=== PATIENT | male | born 1975 | race American Indian/Alaskan Native ===

== ENCOUNTER 2016-12-21 09:03 | Day surgery (SDC) | payer OTHER, MEDICAID ==
[~2016-12-21 09:03] MED LIST: ANCEF/STERILE WATER 2 GM/20 ML 2 GM/20 ML SYRINGE IV NR; HEPARIN 10,000 UNITS/10 ML ONE; MARCAINE 0.5% INFILTRATI ONE; NACL 0.9% 1000 ML 1,000 ML IV SCH; NACL 0.9% 500 ML 500 ML ONE; NACL P/F VIAL (10 ML) 0 ML ONE; RIFADIN ONE
[2016-12-21] MEDS ORDERED: SUBLIMAZE ONE (09:41)
[2016-12-21] MEDS ORDERED: DIPRIVAN 10 MG/ML IV ONE (09:41)
[2016-12-21] MEDS ORDERED: XYLOCAINE MPF 2% ONE (09:41)
[2016-12-21] MEDS ORDERED: NACL BACTERIOSTATIC INFILTRATI ONE (10:14)
--- NOTE | 2016-12-21 10:31 | Anesthesia Consultation ---
Anesthesia Consult and Med Hx Date of service: 12/21/16 - Airway Anesthetic Teeth Evaluation: Good ROM Head & Neck: Adequate Mental/Hyoid Distance: Adequate Mallampati Class: Class II Intubation Access Assessment: Good - Pulmonary Exam CTA: Yes - Cardiac Exam Cardiac Exam: RRR - Pre-Operative Health Status ASA Pre-Surgery Classification: ASA3 Proposed Anesthetic Plan: General - Cardiovascular System Hx Hypertension: Yes (x 4-5 yrs) - Central Nervous System Hx Psychiatric Problems: No - Endocrine Hx End Stage Renal Disease: Yes - Hematic Hx Anemia: Yes - Other Systems Hx Cancer: No
--- NOTE | 2016-12-21 10:31 | Anesthesia Day of Surgery ---
Anesthesia Day of Surgery - Day of Surgery Patient Examined: Yes Patient H&P Reviewed: Yes Patient is NPO: Yes
[2016-12-21 10:59] LABS: Basophils % (Auto) 0.5 % (0.0-1.8); Eosinophils % (Auto) 1.7 % (0.0-4.3); Hematocrit 39.4 % (35.5-45.6); Hemoglobin 12.1 gm/dl (11.8-15.2); Mean Corpuscular HGB Conc 31 % (32-34); Mean Corpuscular Hemoglobin 22 pg (28-32); Mean Corpuscular Volume 71 fl (84-94); Mean Platelet Volume 8.9 fl (6-12); Platelet Count 194 K/mm3 (140-440); Red Blood Count 5.59 M/mm3 (3.65-5.03); Red Cell Distribution Width 22.1 % (13.2-15.2); White Blood Count 6.6 K/mm3 (4.5-11.0)
[2016-12-21 11:00] LABS: BUN/Creatinine Ratio 2.8; Calcium 10.5 mg/dL (8.4-10.2); Chloride 96.3 mmol/L (98-107); Potassium 3.5 mmol/L (3.6-5.0)
[2016-12-21] MEDS ORDERED: MARCAINE 0.5% IJ ONE (11:45)
[2016-12-21] MEDS ORDERED: HEPARIN 10,000 UNITS/10 ML 2,000 UNIT in NACL 0.9% 500 ML 500 ML IR ONE (11:46)
[2016-12-21] MEDS ORDERED: NACL 0.9% IR ONE (11:46)
[2016-12-21] MEDS ORDERED: ZOFRAN ONE (12:16)
--- NOTE | 2016-12-21 12:26 | Short Stay Summary ---
Short Stay Documentation Date of service: 12/21/16 Narrative H&P: See H&P - History H&P: obtained from office - Allergies and Medications Current Medications: Allergies No Known Allergies Allergy (Unverified 12/16/16 17:37) Home Medications Medication Instructions Recorded Confirmed Last Taken Type AtorvaSTATin [Lipitor] 80 mg PO QHS 12/16/16 12/16/16 Unknown History Carvedilol [Coreg] 25 mg PO BID 12/16/16 12/21/16 12/21/16 07:00 History cloNIDine [Catapres] 0.2 mg PO BID 12/16/16 12/21/16 12/21/16 07:00 History hydrALAZINE [Apresoline] 50 mg PO QID 12/16/16 12/21/16 12/21/16 07:00 History Active Medications Cefazolin Sodium (Ancef/Sterile Water 2 Gm/20 Ml) 2 gm in 20 mls @ 80 mls/hr IV PREOP NR PRN Reason: Protocol Stop: 12/21/16 23:59 Sodium Chloride (Nacl 0.9% 1000 Ml) 1,000 mls @ 42 mls/hr IV DIRECT REED Last Admin: 12/21/16 10:53 Dose: 42 mls/hr - Brief post op/procedure progress note Date of procedure: 12/21/16 Pre-op diagnosis: End-Stage Renal Disease Post-op diagnosis: same Procedure: Creation of Right Brachiocephalic Arteriovenous Fistula Anesthesia: AGNES Surgeon: MARLEN BURKS Estimated blood loss: minimal Pathology: none Condition: stable - Disposition Condition at discharge: Good Disposition: DC-01 TO HOME OR SELFCARE Short Stay Discharge Plan Activity: other (no heavy lifting with right arm) Wound: open to air, keep clean and dry, other (okay to wash the wound with soap and water but do not soak in water) Follow up with: MARLEN BURKS MD [Primary Care Provider] - 14 Days Prescriptions: Oxycodone HCl/Acetaminophen [Percocet 7.5/325 mg] 1 each PO Q6HR PRN #50 tablet PRN Reason: Pain
--- NOTE | 2016-12-21 12:28 | Operative Report ---
Operative Report Operative Report: Date of procedure: 12/21/2016 Pre-operative diagnosis: End-Stage Renal Disease Post-operative diagnosis: End-Stage Renal Disease Procedure(s): Creation of Right Brachial Artery to Cephalic Vein Arteriovenous Fistula Surgeon: Miah Lenz MD Detective: None Anesthesia: Gen. endotracheal anesthesia EBL: Minimal Counts: Correct Complications: None Condition: Stable Findings: Successful creation of right brachiocephalic arteriovenous fistula with palpable thrill and palpable radial pulse at the completion of the case. Specimen: None Indications: The patient is a 40-year-old male with history of end-stage disease currently on hemodialysis through a right internal jugular permacath. He is in need of long-term access and found to be a suitable candidate for creation of an access. She was given the risks, benefits, and alternative procedures and consented to procedure. Description of Procedure: The patient was brought to the operating room and laid in supine position after general endotracheal anesthesia was administered the patient was prepped and draped in normal sterile fashion. After anesthetizing the skin a transverse incision was created just below the antecubital crease. Dissection was carried down to the the cephalic vein using sharp dissection. The vein was dissected out both proximally and distally and suture ligated and divided distally. I then ran a 3 Huber proximally in the vein, to ensure patency of the vein. Then flushed the vein with heparinized saline and flow was controlled with a bulldog clamp. I then dissected out the brachial artery through this incision circumferentially both proximal and distal and controlled the artery with vessel loops. I then placed the vessel loops on tension controlling the flow through the artery and created an arteriotomy using an 11 blade and Pearson scissors. I created an end to side anastomosis between the cephalic vein and brachial artery using a 6-0 Prolene in running fashion. Prior to completing the anastomosis I flushed the artery both proximally and distally and then advanced a 3 Huber proximally to break the spasm in the artery. I then completed the anastomosis and removed all vessel loops allowing flow into the fistula which had an excellent thrill. I achieved hemostasis with a combination of direct pressure and electrocautery. Once hemostasis was achieved I anesthetized the wound with Marcaine. I then closed the wound in 2 layers and 3-0 Vicryl in a running fashion to close the deep dermal layer and 4- 0 Monocryl in a running fashion in the subcuticular layer. I dressed the wound with Surgicel. The patient tolerated the procedure well, all sponge needle and instrument counts were correct. The patient was taken to recovery in stable condition.
[2016-12-21] MEDS ORDERED: APRESOLINE ONE (12:30)
[2016-12-21] MEDS ORDERED: APRESOLINE IV ONE ×2 (12:45→12:55)
--- NOTE | 2016-12-21 13:14 | Post Anesthesia Evaluation ---
- Post Anesthesia Evaluation Patient Participated: Yes Airway Patent: Yes Stable Respiratory Function: Yes Nausea/Vomiting: No Temp > 96.8F: Yes Pain Manageable: Yes Adequeate Hydration: Yes Anesthesia Complications: No
[2016-12-21 14:05] VITALS: BP 194/110
== END 2016-12-21 14:26 | disposition home or self-care (01) ==
LOC: OR 09:03
PROVIDERS: ATTEND Surgery Vascular Surgery
DX: I12.0 Hypertensive chronic kidney disease with stage 5 chronic kidney disease or end stage renal disease (principal); N18.6 End stage renal disease; D64.9 Anemia, unspecified; Z79.899 Other long term (current) drug therapy; Z99.2 Dependence on renal dialysis; Z98.890 Other specified postprocedural states
CPT/HCPCS: 36415; 36821; 80048; 85025; C1757; J0360; J0690; J1644; J2405; J2704; J3010; J7030; J7040; J3490